=== PATIENT | male | born 1985 | race Caucasian/White ===

== ENCOUNTER 2022-12-09 20:44 | Observation (INO) | payer SELFPAY ==
[2022-12-09] MEDS ORDERED: Ketorolac 30 MG/ML SDV IVPUSH ONE (21:00)
[2022-12-09] MEDS: Sodium Chloride 0.9% 10 ML Syringe FLUSH PRN ×2 (21:05→22:21)
[2022-12-09] MEDS ORDERED: HYDROmorphone 2 MG/ML SDV IVPUSH ONE (22:04)
[2022-12-09] MEDS ORDERED: Ondansetron 4 MG/2 ML SDV IVPUSH ONE (22:04)
[2022-12-09] MEDS ORDERED: Ondansetron 4 MG Tab.DIS PO PRN (22:40)
[2022-12-09] MEDS ORDERED: Enoxaparin 30 MG/0.3 ML Syringe SUBCUT SCH (22:45)
[2022-12-10] MEDS: HYDROmorphone 2 MG/ML SDV IVPUSH PRN ×2 (03:41→07:47)
[2022-12-10] MEDS: Sodium Chloride 0.9% 10 ML Syringe FLUSH PRN ×2 (03:45→07:48)
[2022-12-10 07:32] LABS: ESTIMATED GFR 100 mL/min (>60)
[2022-12-10] MEDS: Ibuprofen 200 MG Tab PO SCH ×3 (09:45→21:23)
[2022-12-10] MEDS: Acetaminophen 500 MG Tab PO SCH ×3 (09:46→21:23)
[2022-12-10] MEDS: oxyCODONE 5 MG Tab PO PRN ×2 (11:04→18:05)
[2022-12-10] MEDS ORDERED: Baclofen 10 MG Tab PO PRN (11:25)
[2022-12-10] MEDS ORDERED: Bisacodyl 5 MG Tab PO PRN (11:28)
[2022-12-10] MEDS: Polyethylene Glycol 3350 Powder 17 GM Packet PO SCH (13:06)
[2022-12-10] MEDS ORDERED: Enoxaparin 40 MG/0.4 ML Syringe SUBCUT SCH (23:30)
[2022-12-11] MEDS: Ibuprofen 200 MG Tab PO SCH ×4 (03:12→20:39)
[2022-12-11] MEDS: Acetaminophen 500 MG Tab PO SCH ×4 (03:13→20:40)
[2022-12-11] MEDS: Polyethylene Glycol 3350 Powder 17 GM Packet PO SCH (09:00)
[2022-12-11] MEDS: oxyCODONE 5 MG Tab PO PRN ×4 (10:10→22:30)
[2022-12-11] MEDS ORDERED: Baclofen 10 MG Tab PO ONE (16:09)
[2022-12-11] MEDS ORDERED: Lidocaine 4% 1 each Patch TOP ONE (16:15)
[2022-12-11] MEDS ORDERED: Enoxaparin 40 MG/0.4 ML Syringe SUBCUT SCH (21:00)
[2022-12-11] MEDS ORDERED: oxyCODONE 5 MG Tab PO ONE (23:18)
[2022-12-12] MEDS: Ibuprofen 200 MG Tab PO SCH (06:31)
[2022-12-12] MEDS: Acetaminophen 500 MG Tab PO SCH ×4 (06:32→20:52)
[2022-12-12] MEDS: oxyCODONE 5 MG Tab PO PRN ×3 (06:35→19:15)
[2022-12-12] MEDS: Ibuprofen 800 MG Tab PO SCH ×3 (09:25→20:54)
[2022-12-12] MEDS: Polyethylene Glycol 3350 Powder 17 GM Packet PO SCH (09:27)
[2022-12-12] MEDS: Baclofen 10 MG Tab PO SCH ×3 (09:36→20:54)
[2022-12-12] MEDS: Menthol 10%/Methyl Salicylate 30% 85 GM Tube TOP PRN (20:54)
[2022-12-12] MEDS ORDERED: Lidocaine 4% 1 each Patch TOP SCH (21:00)
[2022-12-13] MEDS: oxyCODONE 5 MG Tab PO PRN ×2 (01:53→08:52)
[2022-12-13] MEDS ORDERED: hydrOXYzine HCl 25 MG Tab PO PRN (08:48)
[2022-12-13] MEDS: Acetaminophen 500 MG Tab PO SCH ×3 (08:53→20:20)
[2022-12-13] MEDS: Ibuprofen 800 MG Tab PO SCH (08:53)
[2022-12-13] MEDS: Baclofen 10 MG Tab PO SCH ×3 (08:54→20:23)
[2022-12-13] MEDS: Polyethylene Glycol 3350 Powder 17 GM Packet PO SCH (08:54)
[2022-12-13] MEDS: Menthol 10%/Methyl Salicylate 30% 85 GM Tube TOP PRN (08:57)
[2022-12-13] MEDS ORDERED: Dexamethasone 4 MG Tab PO SCH (09:15)
[2022-12-13] MEDS ORDERED: HYDROmorphone 2 MG Tab PO PRN (12:00)
[2022-12-13] MEDS ORDERED: Menthol 10%/Methyl Salicylate 30% 85 GM Tube TOP PRN (16:27)
[2022-12-13] MEDS: Ketorolac 30 MG/ML SDV IM SCH ×2 (16:49→22:21)
[2022-12-13] MEDS ORDERED: Celecoxib 200 MG Cap PO SCH (21:00)
[2022-12-14] MEDS: Ketorolac 30 MG/ML SDV IM SCH (04:20)
[2022-12-14] MEDS: Baclofen 10 MG Tab PO SCH ×2 (08:09→14:06)
[2022-12-14] MEDS: Polyethylene Glycol 3350 Powder 17 GM Packet PO SCH (08:10)
[2022-12-14] MEDS: Acetaminophen 500 MG Tab PO SCH ×2 (08:11→14:06)
[2022-12-14] MEDS ORDERED: Naproxen 500 MG Tab PO SCH (10:00)
[2022-12-14 14:59] VITALS: BP 140/89; PULSE 96
== END 2022-12-14 14:33 | disposition home or self-care (01) ==
LOC: FB.ED 20:44 → FB.MS 22:45
PROVIDERS: ADMIT Family Medicine; ATTEND Family Medicine
DX: S32.019A Unspecified fracture of first lumbar vertebra, initial encounter for closed fracture (principal); S32.029A Unspecified fracture of second lumbar vertebra, initial encounter for closed fracture; F17.210 Nicotine dependence, cigarettes, uncomplicated; Z88.0 Allergy status to penicillin; Z88.8 Allergy status to other drugs, medicaments and biological substances; W10.8XXA Fall (on) (from) other stairs and steps, initial encounter
CPT/HCPCS: 36415; 72131; 72192; 80053; 85025; 96372; 96374; 96375; 96376; 97140; 97161; 97165; 97530; 99222; 99232; 99238; 99282; 99285; A9270; G0378; J1170; J1650; J1885; J2405; J3490; J8540; Q0162

== ENCOUNTER 2024-05-27 10:07 | Emergency (ER) | payer SELFPAY ==
[2024-05-27] MEDS: Ketorolac 30 MG/ML SDV IM ONE (10:54)
[2024-05-27 11:22] VITALS: BP 110/81; PULSE 79
== END 2024-05-27 11:20 | disposition home or self-care (01) ==
LOC: FB.ED 10:07
DX: S39.012A Strain of muscle, fascia and tendon of lower back, initial encounter (principal); E66.9 Obesity, unspecified; Z88.0 Allergy status to penicillin; Z88.8 Allergy status to other drugs, medicaments and biological substances; Z68.31 Body mass index [BMI] 31.0-31.9, adult; X50.1XXA Overexertion from prolonged static or awkward postures, initial encounter
CPT/HCPCS: 96372; 99283; J1885